=== PATIENT | male | born 1950 | race Caucasian/White ===

== ENCOUNTER → 2017-02-20 | Outpatient (CLI) | payer OTHER | LOC: BMCIMAGING 13:56 | PROVIDERS: ATTEND Orthopaedic Surgery | DX: Z09 Encounter for follow-up examination after completed treatment for conditions other than malignant neoplasm (principal) ==

== ENCOUNTER → 2017-04-01 | Outpatient (CLI) | payer OTHER | LOC: CIMAGING 13:06 | PROVIDERS: ATTEND Orthopaedic Surgery | DX: Z01.818 Encounter for other preprocedural examination (principal); M16.11 Unilateral primary osteoarthritis, right hip | CPT/HCPCS: 72192-PO ==

== ENCOUNTER → 2017-04-24 | Outpatient (CLI) | payer OTHER | LOC: BMCIMAGING 13:52 | PROVIDERS: ATTEND Orthopaedic Surgery | DX: M25.552 Pain in left hip (principal); Z96.642 Presence of left artificial hip joint ==

== ENCOUNTER 2017-07-08 05:58 | Inpatient (IN) | payer OTHER ==
[2017-07-08] MEDS ORDERED: ROPIVACAINE 0.2% 80 MG, EPINEPHrine 0.2 MG, KETOROLAC TROMETHAMINE 30 MG, morphINE 10 M... IU ONE (06:00)
[2017-07-08] MEDS ORDERED: TRANEXAMIC ACID 1,860 MG in NS 100 ML IV ONE (06:00)
--- NOTE | 2017-07-08 06:39 | PDHPUP ---
History & Physical Update H&P update statement: This history and physical update is based on an assessment of the patient which was completed after admission or registration (within 24 hours), but prior to the surgery/procedure.
--- NOTE | 2017-07-08 06:40 | PDIAF ---
- Diagnosis Diagnosis: right hip djd Code Status: Full Code - Medication Management Discharge Medications: Medications to Continue on Transfer Herbals/Supplements -Info Only 1 ea PO DAILY 06/22/16 [Last Taken 1 Week Ago ~] Levothyroxine [Synthroid 75 mcg (*)] 75 mcg PO DAILY06 06/22/16 [Last Taken ] Multivitamins [Multivitamin (*)] 1 each PO DAILY 06/22/16 [Last Taken 1 Week Ago ~07/16/16] Everly-3 Fatty Acids [Fish Oil 1000 mg (*)] 1,000 mg PO DAILY 06/22/16 [Last Taken 1 Week Ago ~07/16/16] Rosuvastatin Calcium [Crestor 5mg] 5 mg PO DAILY 06/22/16 [Last Taken 07/22/16] Ibuprofen [Motrin (*)] 200 mg PO DAILY PRN 06/10/17 [Last Taken Unknown] Valsartan [Diovan] 320 mg PO DAILY 06/10/17 [Last Taken Unknown] Discharge Medications: Refer to the Discharge Home Medication list for PRN reason. - Orders Services needed: Physical Therapy Activity/Weight Bearing Restrictions: daily dressing changes. no soaking. may shower without bandage. wbat. anterior hip precautions. f/u at two weeks. seek attn for increasing pain, leg pain, drainage, s/s infection - Follow Up Care Current Providers and Referrals: Olya Zhang MD [Primary Care Provider] -
[2017-07-08] MEDS ORDERED: FAMOTIDINE 20 MG TAB PO ONE (07:07)
[2017-07-08] MEDS ORDERED: ceFAZolin 2 GM/DEXTROSE 100 ML IV ONE (07:07)
[2017-07-08] MEDS ORDERED: ACETAMINOPHEN 325 MG TAB PO ONE (07:07)
[2017-07-08] MEDS ORDERED: LR 1,000 ML IV ONE (07:08)
[2017-07-08] MEDS ORDERED: LIDOCAINE 1% 2 ML INJ ID PRN (07:08)
--- NOTE | 2017-07-08 08:03 | PDANEPAE ---
ANE History of Present Illness R total hip arthroplasty ANE Past Medical History - Cardiovascular History Hx Hypertension: Yes Hx Arrhythmias: No Hx Chest Pain: No Hx Coronary Artery / Peripheral Vascular Disease: No Hx CHF / Valvular Disease: No Hx Palpitations: No Cardiovascular History Comment: HYPERLIPIDEMIA - Pulmonary History Hx COPD: No Hx Asthma/Reactive Airway Disease: No Hx Recent Upper Respiratory Infection: No Hx Oxygen in Use at Home: No Hx Sleep Apnea: Yes Sleep Apnea Screening Result - Last Documented: Positive Pulmonary History Comment: [facility] POSITIVE USES CPAP- INSTRUCTED - Neurologic History Hx Cerebrovascular Accident: No Hx Seizures: No Hx Dementia: No Neurologic History Comment: BILATERAL NUMBNESS TO FEET - Endocrine History Hx Diabetes: No Hypothyroid: Yes Endocrine History Comment: HYPOTHYROIDISM - Renal History Hx Renal Disorders: No - Liver History Hx Hepatic Disorders: No - Neurological & Psychiatric Hx Hx Neurological and Psychiatric Disorders: No Neurological / Psychiatric History Comment: 2 spine surgeries. Numbness in bilat feet-micky R. - Cancer History Hx Cancer: No - Congenital Disorder History Hx Congenital Disorders: No - GI History GERD: mild Hx Gastrointestinal Disorders: Yes Gastrointestinal History Comment: HIATAL HERNIA- GIVES HIM OCC PROBLEMS - Other Health History Other Health History: WEARS GLASSES. ARTHRITIS. THOMBROCYTOPENIA - Chronic Pain History Chronic Pain: Yes (RIGHT HIP AND BACK) - Surgical History Prior Surgeries: 07/23/16 LEFT HIP WITH REPINE. lumbar surgeries x2 (L5-S1). Left ACL ANE Review of Systems Review of Systems: - Exercise capacity METS (RN): 4 METS ANE Patient History - Allergies Allergies/Adverse Reactions: No Known Allergies Allergy (Verified 06/10/17 13:37) - Home Medications Home Medications: Herbals/Supplements -Info Only 1 ea PO DAILY 06/22/16 [Last Taken 1 Week Ago ~] Levothyroxine [Synthroid 75 mcg (*)] 75 mcg PO DAILY06 06/22/16 [Last Taken ] Multivitamins [Multivitamin (*)] 1 each PO DAILY 06/22/16 [Last Taken 1 Week Ago ~07/16/16] Ranier-3 Fatty Acids [Fish Oil 1000 mg (*)] 1,000 mg PO DAILY 06/22/16 [Last Taken 1 Week Ago ~07/16/16] Rosuvastatin Calcium [Crestor 5mg] 5 mg PO DAILY 06/22/16 [Last Taken 07/22/16] Ibuprofen [Motrin (*)] 200 mg PO DAILY PRN 06/10/17 [Last Taken Unknown] Valsartan [Diovan] 320 mg PO DAILY 06/10/17 [Last Taken Unknown] - NPO status NPO Since - Liquids (Date): 07/07/17 NPO Since - Liquids (Time): 20:30 NPO Since - Solids (Date): 07/07/17 NPO Since - Solids (Time): 20:30 - Anes Hx Anes Hx: no prior problems - Smoking Hx Smoking Status: Former smoker - Alcohol Use Alcohol Use: Other (one drink/day) - Family Anes Hx Family Hx Anesthesia Complications: NONE ANE Labs/Vital Signs - Vital Signs Blood Pressure: 139/90 Heart Rate: 52 Respiratory Rate: 17 O2 Sat (%): 97 Height: 167.64 cm Weight: 92.986 kg ANE Physical Exam - Airway Neck exam: decreased ROM Mouth exam: normal dental/mouth exam (upper front cap) - Pulmonary Pulmonary: clear to auscultation - Cardiovascular Cardiovascular: regular rate and rhythym - ASA Status ASA Status: II ANE Anesthesia Plan Anesthesia Plan: GA w LMA, spinal
[2017-07-08] MEDS ORDERED: MIDAZOLAM 2 MG/2 ML VIAL IVP ONE (08:13)
[2017-07-08] MEDS ORDERED: fentaNYL 100 MCG/2 ML INJ ONE ×5 (08:18→11:13)
[2017-07-08] MEDS ORDERED: PROPOFOL 200 MG/20 ML VIAL ONE (08:18)
[2017-07-08] MEDS ORDERED: LACTULOSE 20 GM/30 ML UDCUP PO PRN (09:04)
[2017-07-08] MEDS ORDERED: CYCLOBENZAPRINE 10 MG TAB PO PRN (09:04)
[2017-07-08] MEDS ORDERED: PROMETHAZINE HCL 25 MG SUPPR PR PRN (09:04)
[2017-07-08] MEDS ORDERED: PROMETHAZINE HCL 25 MG/ML INJ IVP PRN (09:04)
[2017-07-08] MEDS ORDERED: DIPHENOXYLATE/ATROPINE LOMOTIL 1 TAB PO PRN (09:04)
[2017-07-08] MEDS ORDERED: POLYETHYLENE GLYCOL 3350 17 GM PKT PO PRN (09:04)
[2017-07-08] MEDS ORDERED: ONDANSETRON DISINTEGRATING 4 MG TAB PO PRN (09:04)
[2017-07-08] MEDS ORDERED: MAGNESIUM HYDROXIDE 30 ML UDCUP PO PRN (09:04)
[2017-07-08] MEDS ORDERED: BISACODYL 10 MG SUPP PR PRN (09:04)
[2017-07-08] MEDS ORDERED: TEMAZEPAM 15 MG CAP PO PRN (09:04)
[2017-07-08] MEDS ORDERED: ONDANSETRON 4 MG/2 ML VIAL IVP PRN (09:04)
[2017-07-08] MEDS ORDERED: diphenhydrAMINE 25 MG CAP PO PRN (09:04)
[2017-07-08] MEDS ORDERED: METOCLOPRAMIDE 10 MG/2 ML VIAL IVP PRN (09:04)
[2017-07-08] MEDS ORDERED: traMADol 50 MG TAB PO PRN (09:04)
[2017-07-08] MEDS ORDERED: ROCURONIUM 50 MG/5 ML VIAL ONE (09:26)
[2017-07-08] MEDS ORDERED: LR 1,000 ML IV SCH (09:30)
[2017-07-08] MEDS ORDERED: THROMBIN (BOVINE) 5,000 UNIT VIAL TP ONE (10:02)
[2017-07-08] MEDS ORDERED: CALCIUM CHLORIDE 1 GM/10 ML INJ ONE (10:02)
[2017-07-08] MEDS ORDERED: ONDANSETRON 4 MG/2 ML VIAL ONE (10:09)
[2017-07-08] MEDS: fentaNYL 100 MCG/2 ML INJ IVP PRN ×2 (11:15→11:40)
[2017-07-08] MEDS ORDERED: ENALAPRILAT DIHYDRATE 1.25 MG/ML VIAL IVP PRN (11:24)
[2017-07-08] MEDS ORDERED: NALOXONE HCL 0.4 MG/ML INJ IVP PRN (11:24)
[2017-07-08] MEDS ORDERED: ENALAPRILAT DIHYDRATE 1.25 MG/ML VIAL ONE (11:27)
--- NOTE | 2017-07-08 11:58 | POSTANESTH ---
Post Anesthetic Evaluation Cardiovascular Status: Similar to Pre-Op Cond Respiratory Status: Similar to Pre-op Cond. Level of Consciousness/Mental Status: Can Participate in Eval Pain Control: Adequate, Prn Tx Ordered Nausea/Vomiting Control: Adequate, Prn Tx Ordered Complications Possibly Related to Anesthesia: None Noted
[2017-07-08] MEDS ORDERED: traMADol 50 MG TAB ONE (12:14)
[2017-07-08] MEDS: oxyCODONE IR 5 MG TAB PO PRN ×2 (13:39→19:54)
[2017-07-08] MEDS: ceFAZolin 2 GM/DEXTROSE 100 ML IV SCH ×2 (14:29→22:12)
[2017-07-08] MEDS: ACETAMINOPHEN 325 MG TAB PO SCH ×2 (15:42→17:01)
[2017-07-08] MEDS: TRANEXAMIC ACID 650 MG TAB PO SCH ×2 (15:44→17:02)
[2017-07-08] MEDS: SENNOSIDES/DOCUSATE SODIUM TAB PO SCH (19:54)
[2017-07-08] MEDS: FAMOTIDINE 20 MG TAB PO SCH (19:54)
[2017-07-08] MEDS: ASPIRIN 325 MG TAB PO SCH (20:04)
[2017-07-09] MEDS: TRANEXAMIC ACID 650 MG TAB PO SCH (01:02)
[2017-07-09] MEDS: ACETAMINOPHEN 325 MG TAB PO SCH ×3 (01:03→13:23)
[2017-07-09 05:09] LABS: HEMATOCRIT 32.9 % (40.0-51.0); HEMOGLOBIN 11.5 g/dL (13.7-17.5)
[2017-07-09] MEDS ORDERED: LEVOTHYROXINE 75 MCG TAB PO SCH (06:00)
--- NOTE | 2017-07-09 07:16 | PDIAF ---
- Diagnosis Diagnosis: right hip djd Code Status: Full Code - Medication Management Discharge Medications: Medications to Continue on Transfer Herbals/Supplements -Info Only 1 ea PO DAILY 06/22/16 [Last Taken 1 Week Ago ~] Levothyroxine [Synthroid 75 mcg (*)] 75 mcg PO DAILY06 06/22/16 [Last Taken ] Multivitamins [Multivitamin (*)] 1 each PO DAILY 06/22/16 [Last Taken 1 Week Ago ~07/16/16] Hye-3 Fatty Acids [Fish Oil 1000 mg (*)] 1,000 mg PO DAILY 06/22/16 [Last Taken 1 Week Ago ~07/16/16] Rosuvastatin Calcium [Crestor 5mg] 5 mg PO DAILY 06/22/16 [Last Taken 07/22/16] Ibuprofen [Motrin (*)] 200 mg PO DAILY PRN 06/10/17 [Last Taken Unknown] Valsartan [Diovan] 320 mg PO DAILY 06/10/17 [Last Taken Unknown] Aspirin [Aspirin 325 mg (*)] 325 mg PO DAILY tab 07/09/17 [Last Taken Unknown] oxyCODONE IR [Oxycodone Ir (*)] 5 - 10 mg PO Q3HRS PRN #70 tab 07/09/17 [Last Taken Unknown] Discharge Medications: Refer to the Discharge Home Medication list for PRN reason. - Orders Services needed: Physical Therapy Diet Recommendation: no restrictions on diet Diet Texture: Regular Texture Diet Activity/Weight Bearing Restrictions: daily dressing changes. no soaking. may shower without bandage. wbat. anterior hip precautions. f/u at two weeks. seek attn for increasing pain, leg pain, drainage, s/s infection - Follow Up Care Current Providers and Referrals: Olya Zhang MD [Primary Care Provider] -
--- NOTE | 2017-07-09 07:31 | GDS ---
[f rep st] DISCHARGE SUMMARY ADMIT DIAGNOSIS: Right hip degenerative joint disease. DISCHARGE DIAGNOSIS: Right hip degenerative joint disease. PROCEDURE: Right total hip arthroplasty-MAKOplasty. HISTORY OF PRESENT ILLNESS: The patient is a 67-year-old gentleman, who has end-stage arthritis to h is right hip. Clinical and radiographic features are consistent with this. He presents for elective right total hip replacement. HOSPITAL COURSE: The patient was admitted overnight after uncomplicated total hip arthroplasty. He tolerated the procedure well. At the time of discharge, he is tolerating an oral diet. His pain is well controlled on oral medicines. He is voiding without difficulty. Dressings are clean, dry, and intact. He has intact hip flexion, no calf swelling or tenderness. Negative Homans. X-rays are sta ble with anatomic alignment. No fracture or lucency and concentric reduction. DISCHARGE ACTIVITY: Anterior hip precautions. Daily dressing changes. May shower without the carrillo ge. No soaking or immersion. DISCHARGE MEDICATIONS: Aspirin 325 mg p.o. daily and oxycodone 5 mg 1-2 every 3 hours p.r.n. pain. FOLLOWUP: Two weeks. Seek attention for increasing redness, swelling, drainage, discharge, or other focal complaint. Copy requested to: Primary Care Physician /[id number]/MODL
[2017-07-09 07:41] VITALS: RESP 18
[2017-07-09] MEDS ORDERED: VALSARTAN 160 MG TAB PO SCH (09:00)
[2017-07-09] MEDS ORDERED: ROSUVASTATIN CALCIUM 10 MG TAB PO SCH (09:00)
[2017-07-09] MEDS: SENNOSIDES/DOCUSATE SODIUM TAB PO SCH (10:22)
[2017-07-09] MEDS: FAMOTIDINE 20 MG TAB PO SCH (10:24)
[2017-07-09] MEDS: ASPIRIN 325 MG TAB PO SCH (10:24)
[2017-07-09] MEDS: oxyCODONE IR 5 MG TAB PO PRN ×2 (10:25→13:24)
[2017-07-09 12:03] VITALS: BP 131/64; PULSE 72; TEMP 98.7; O2SAT 95
--- NOTE | 2017-07-09 12:29 | ASMTCMCOM ---
CM Note CM Note Notes: Pt aayushs Davis, Lani deshpande [facility] notified Pt address/phone confirmed. Date Signed: 07/09/2017 12:29 PM Electronically Signed By:SMITH Davenport
--- NOTE | 2017-07-09 15:43 | ASDISCHSUM ---
Discharge Information Plan Status:Home with Home Health Medically Cleared to Leave: Discharge Date:07/09/2017 02:15 PM CM D/C Disposition:Home Health Service ADT D/C Disposition:Home Health Service Projected Discharge Date:07/09/2017 11:00 AM Transportation at D/C: Discharge Delay Reason: Follow-Up Date:07/09/2017 11:00 AM Discharge Slot: Final Diagnosis: Placement Information Referral Type:*Home Health Care Services Referral ID:[id number] Provider Name:On License Of [facility] Care Address 1[address] [place] [address] Address 2: City:[place] Selection Factors: State:[place] Patient Contact Information Contact Name:IRENAMORENO Relationship:Friend Address: City: [facility] Phone: [facility] Code: Email: Financial Information Financial Class: Primary Plan Desc:MEDICARE INPATIENT Primary Plan Number:[id number] Secondary Plan Desc:SOO INDEMNITY Secondary Plan Number:[id number] Assessment Information [facility] CM Progress Note CM Note CM Note Notes: Pt ariana [facility], Lani deshpande [facility] notified Pt address/phone confirmed. Date Signed: 07/09/2017 12:29 PM Electronically Signed By:SMITH Davenport Intervention Information
== END 2017-07-09 14:15 | disposition home health service (06) | DRG 470 ==
LOC: F3N 05:58
PROVIDERS: ADMIT Orthopaedic Surgery; ATTEND Orthopaedic Surgery
PROC: 8E0YXCZ Robotic Assisted Procedure of Lower Extremity (ICD-10-PCS; principal; 2017-07-08 07:15)
PROC: 0SR904Z Replacement of Right Hip Joint with Ceramic on Polyethylene Synthetic Substitute, Open Approach (ICD-10-PCS; principal; 2017-07-08 07:15)
DX: M16.11 Unilateral primary osteoarthritis, right hip (principal); M21.70 Unequal limb length (acquired), unspecified site; E78.5 Hyperlipidemia, unspecified; G47.33 Obstructive sleep apnea (adult) (pediatric); E03.9 Hypothyroidism, unspecified
CPT/HCPCS: 97116-GP; 97161-GP; 97165-GO; 97530-GP; G8978-GP-CJ; G8979-GP-CI; G8980-GP-CI; G8987-GO-CI; G8988-GO-CI; G8989-GO-CI; J0171; J0690; J1885; J2250; J2405; J2704; J2795; J3010

== ENCOUNTER → 2017-08-20 | Outpatient (CLI) | payer OTHER | LOC: BMCIMAGING 11:13 | PROVIDERS: ATTEND Orthopaedic Surgery | DX: Z47.1 Aftercare following joint replacement surgery (principal); Z96.641 Presence of right artificial hip joint ==

== ENCOUNTER → 2017-10-02 | Outpatient (CLI) | payer OTHER | LOC: BMCIMAGING 10:50 | PROVIDERS: ATTEND Physician Assistant | DX: Z47.1 Aftercare following joint replacement surgery (principal); Z96.641 Presence of right artificial hip joint ==

== ENCOUNTER → 2018-01-08 | Outpatient (CLI) | payer OTHER | LOC: BMCIMAGING 15:01 | PROVIDERS: ATTEND Orthopaedic Surgery | DX: Z47.1 Aftercare following joint replacement surgery (principal); Z96.641 Presence of right artificial hip joint ==